=== PATIENT | female | born 1940 | race Hispanic/Latino ===

== ENCOUNTER 2017-08-31 05:18 | Observation (INO) | payer OTHER ==
[2017-08-26 11:56] LABS: BASOPHILS # (AUTO) 0.1 (0.0-0.1); BASOPHILS % 0.7 % (0.0-1.0); EOSINOPHILS # (AUTO) 0.1 (0.0-0.4); EOSINOPHILS % 1.6 % (0.0-6.0); HEMATOCRIT 42.1 % (34.2-44.1); HEMOGLOBIN 13.3 g/dL (12.0-16.0); LYMPHOCYTES # (AUTO) 1.6 (1.0-3.2); LYMPHOCYTES % 19.4 % (18.0-39.1); MEAN CORPUSCULAR HEMOGLOBIN 25.7 pg (28-32); MEAN CORPUSCULAR HGB CONC 31.6 g/dL (31-35); MEAN CORPUSCULAR VOLUME 81.3 fL (81-99); MONOCYTES # (AUTO) 0.9 (0.2-0.8); MONOCYTES % 10.8 % (4.4-11.3); NEUTROPHILS # (AUTO) 5.6 (2.1-6.9); NEUTROPHILS % 67.1 % (38.7-80.0); PLATELET COUNT 259 x10e3/uL (140-360); RED BLOOD COUNT 5.18 x10e6/uL (3.6-5.1); RED CELL DISTRIBUTION WIDTH 14.6 % (11.7-14.4)
[2017-08-26 12:15] LABS: ANION GAP 12.7 mmol/L (8-16); BLOOD UREA NITROGEN 11 mg/dL (7-26); BUN/CREATININE RATIO 15 (6-25); CALCIUM 9.6 mg/dL (8.4-10.2); CARBON DIOXIDE 28 mmol/L (22-29); CHLORIDE 103 mmol/L (98-107); CREATININE, SERUM 0.75 mg/dL (0.57-1.11); EST GLOMERULAR FILTRATION RATE > 60 ML/MIN (60-); GLUCOSE 94 mg/dL (74-118); POTASSIUM 4.7 mmol/L (3.5-5.1); SODIUM 139 mmol/L (136-145)
--- NOTE | 2017-08-26 13:07 | Diagnostic Imaging Report ---
PROCEDURE: Frontal and lateral views of the chest. COMPARISON: None. INDICATIONS: PREOP - LYMPHNODE SX FINDINGS: Lines/tubes: Right upper chest Port-A-Cath with catheter distal tip projecting in the cavoatrial junction. Lungs: The lungs are well inflated. Square-shaped nodular density projecting in the left lower lung, seen on the frontal view only likely represents summation of vessels and bony shadows and/or costochondral calcification. There is no evidence of pneumonia or pulmonary edema. Pleura: There is no pleural effusion or pneumothorax. Heart and mediastinum: Cardiac silhouette is unremarkable. Pulmonary vasculature is normal. Bones: No acute bony abnormality. IMPRESSION: 1. No acute cardiopulmonary abnormalities. Luis Rios M.D. Dictated by: Luis Rios M.D. on 08/26/2017 at 13:07 Electronically approved by: Luis Rios M.D. on 08/26/2017 at 13:07
[~2017-08-31] VITALS: Ht 170.2 cm; Wt 103.9 kg
[~2017-08-31 05:18] MED LIST: FAMOTIDINE20 MG PO; LORAZEPAM0.5 MG PO; LOSARTAN POTASS25 MG; METOPROLOL TART25 MG PO; VITAMIN C1000 MG; VITAMIN D31000 UNI1
--- OUTSIDE RECORDS SUMMARY | 2017-08-31 05:21 | XMS REPORT ---
Author Author [facility] Address Unknown Phone Unavailable Care Team Providers Care Enterprise Sales Executive Name Role Phone LEX LOMBARDO Unavailable Unavailable Problems This patient has no known problems. Allergies, Adverse Reactions, Alerts This patient has no known allergies or adverse reactions. Medications This patient has no known medications. Results Test Description Test Time Test Comments Text Results Atomic Results Result Comments CHEST 2 VIEWS [place] [address] Patient Name: ISAI QUIROS MR #: [id number] : 1940 Age/Sex: 76/F Req # : [id number] Adm Physician: Ordered by: NUVIA TALBERT MD Report #: [id number] Location: OR Room/Bed: Procedure: [id number] DX/CHEST 2 VIEWS Exam Date: 08/26/17 Exam Time: 1200 REPORT STATUS: Signed PROCEDURE: Frontal and lateral views of the chest. COMPARISON: None. INDICATIONS: PREOP - LYMPHNODE SX FINDINGS: Lines/tubes: Right upper chest Port-A-Cath with catheter distal tip projecting in the cavoatrial junction. Lungs: The lungs are well inflated. Square-shaped nodular density projecting in the left lower lung, seen on the frontal view only likely represents summation of vessels and bony shadows and/or costochondral calcification. There is no evidence of pneumonia or pulmonary edema. Pleura: There is no pleural effusion or pneumothorax. Heart and mediastinum: Cardiac silhouette is unremarkable. Pulmonary vasculature is normal. Bones: No acute bony abnormality. IMPRESSION: 1. No acute cardiopulmonary abnormalities. Reji Rios M.D. Dictated by: Reji Rios M.D. on 08/26/2017 at 13:07 Electronically approved by: Reji Rios M.D. on 08/26/2017 at 13:07 Dictated By: REJI RIOS MD [id number] Transcribed By: DON on 08/26/17 1307 COPY TO: NUVAI TALBERT MD
--- OUTSIDE RECORDS SUMMARY | 2017-08-31 05:21 | XMS REPORT | Clinical Summary ---
Author Author [facility] Address Unknown Phone Unavailable Care Team Providers Care Evaporator Operator Name Role Phone Provider, Unknown PCP Unavailable Allergies Active Allergy Reactions Severity Noted Date Comments Prochlorperazine 06/04/2016 Penicillins 06/04/2016 Current Medications Prescription Sig. Disp. Refills Start End Date Status Date amLODIPine (NORVASC) 2.5 Take 2.5 mg by mouth once 0 05/18/20 Active mg tablet daily. 16 LORAZepam (ATIVAN) 0.5 MG Take 0.5 mg by mouth 2 0 05/26/20 Active tablet (two) times a day as 16 needed. losartan (COZAAR) 25 MG TAKE 1 TABLET BY ORAL 3 04/09/20 Active tablet ROUTE EVERY DAY 16 CHOLECALCIFEROL, VITAMIN Take by mouth. Active D3, (VITAMIN D3 ORAL) metoprolol tartrate 1 TABLET WITH FOOD TWICE 3 08/03/19 Active (LOPRESSOR) 25 mg tablet A DAY ORALLY 90 DAYS 18 Active Problems Problem Noted Date Well woman exam with routine gynecological exam 06/17/2016 Encounters Date Type Specialty Care Team Description 08/24/2017 Office Visit Gynecologic Oncology Emeli De La Cruz MD Well woman exam with routine gynecological exam (Primary Dx) 10/03/2016 [facility] General Internal Medicine Physician, Emergency, MD - Encounter Iban Yeboah 10/05/2016 MD Portillo 10/03/2016 Orders Only Emergency Medicine Feliciano Gaytan DO after 08/30/2016 Family History Medical History Relation Name Comments Breast cancer Sister Relation Name Status Comments Sister Social History Tobacco Use Types Packs/Day Years Used Date Never Smoker Smokeless Tobacco: Never Used Alcohol Use Drinks/Week oz/Week Comments No Sex Assigned at Date Recorded Not on file Last Filed Vital Signs Vital Sign Reading Time Taken Blood Pressure 134/59 08/24/2017 4:06 PM SENIOR ARCHITECT/DESIGN MANAGER Pulse 70 08/24/2017 4:06 PM SENIOR ARCHITECT/DESIGN MANAGER Temperature - - Respiratory Rate - - Oxygen Saturation - - Inhaled Oxygen - - Concentration Weight 57.2 kg (126 lb) 08/24/2017 4:06 PM SENIOR ARCHITECT/DESIGN MANAGER Height 172.7 cm (5' 8") 08/24/2017 4:06 PM SENIOR ARCHITECT/DESIGN MANAGER Body Mass Index 19.16 08/24/2017 4:06 PM SENIOR ARCHITECT/DESIGN MANAGER Plan of Treatment Date Type Specialty Care Team Description 08/25/2018 Office Visit Gynecologic Oncology Emeli De La Cruz MD [address] [place] [address] Health Maintenance Due Date Last Done Comments ZOSTER VACCINE 2000 PNEUMOCOCCAL 2005 POLYSACCHARIDE VACCINE AGE 65 AND OVER PNEUMOCOCCAL-13 2005 INFLUENZA VACCINE 02/02/2017 Results * Urine culture (08/30/2017) Specimen Performing Laboratory Urine * POC glucose (10/03/2016 3:49 AM) Only the most recent of 2 results within the time period is included. Component Value Ref Range POC glucose 86 65 - 100 mg/dL Comment: Meter ID: [id number] Import/Export Clerk: Galina Moon Specimen Performing Laboratory [facility] DEPARTMENT OF PATHOLOGY AND GENOMIC MEDICINE [address] [place] [id number] * XR Chest 1 Vw (10/03/2016 1:45 AM) Specimen Performing Laboratory [facility] [place] [id number] Narrative EXAMINATION:CHEST 1 VIEW PA AP CLINICAL HISTORY:Cough COMPARISON:04/04/2015 IMPRESSION: Right chest port is unchanged with tip projecting over cavoatrial junction. Chronic appearing interstitial lung markings. No consolidations, effusions, or pneumothorax. No acute osseous abnormalities. [facility]-[id number] Procedure Note Interface, Radiology Conversion - 10/03/2016 2:05 AM CDT EXAMINATION: CHEST 1 VIEW PA AP CLINICAL HISTORY: Cough COMPARISON: 04/04/2015 IMPRESSION: Right chest port is unchanged with tip projecting over cavoatrial junction. Chronic appearing interstitial lung markings. No consolidations, effusions, or pneumothorax. No acute osseous abnormalities. [facility]-[id number] * CT Abdomen Pelvis Wo Contrast (10/03/2016 1:30 AM) Specimen Performing Laboratory [facility] [address] [place] [address] ABDOMEN WO PELVIS WO CLINICAL INDICATION:Abdominal pain TECHNIQUE: Multidetector CT of the abdomen and pelvis was performed without intravenous administration of iodinated contrast with multiplanar reformats. CT scans are performed using radiation dose reduction techniques (iterative reconstruction and/or automated exposure control). Technical factors are evaluated and adjusted to ensure appropriate moderation of exposure. Automated dose management technology is applied to adjust radiation exposure while achieving a diagnostic quality image. COMPARISON:None. FINDINGS: Lung bases: Mild bibasilar scarring. Liver:Vague contour irregularity. Gallbladder and biliary:Normal. Pancreas:Mildly atrophic with fatty replacement. Spleen: 1.2 cm hypodensity at the anterior margin of the spleen, probable cyst. Gastrointestinal:Diverticulosis of the descending and sigmoid colon. There is circumferential mural wall thickening of a segment of sigmoid colon. There is subtle fat stranding around the sigmoid colon extending towards the posterior left pelvic sidewall. No extraluminal gas or fluid collection. Large and small bowel are normal in caliber. Appendix is visualized and appears normal. Adrenals:Normal. Kidneys and ureters:No mass or hydronephrosis. Urinary bladder:Normal. Lymph nodes:No enlarged lymph nodes in the abdomen or pelvis. Peritoneum:No ascites or free air. Vascular:Moderate atherosclerotic changes of the abdominal aorta and major branch vessels. Evaluation of vessel lumens is limited due to lack of IV contrast. Reproductive organs:Uterus is absent. Unremarkable adnexae. Abdominal wall:Unremarkable. Bones:Diffuse osteopenia. Mild degenerative changes. IMPRESSION: Findings suggestive of mild sigmoid diverticulitis and/or muscular hypertrophy. No associated gas or fluid collection. Endoscopy may be considered following resolution of acute inflammatory process. [facility]-[id number] Procedure Note [facility], Radiology Conversion - 10/03/2016 1:[address] ABDOMEN WO PELVIS WO CLINICAL INDICATION: Abdominal pain TECHNIQUE: Multidetector CT of the abdomen and pelvis was performed without intravenous administration of iodinated contrast with multiplanar reformats. CT scans are performed using radiation dose reduction techniques (iterative reconstruction and/or automated exposure control). Technical factors are evaluated and adjusted to ensure appropriate moderation of exposure. Automated dose management technology is applied to adjust radiation exposure while achieving a diagnostic quality image. COMPARISON: None. FINDINGS: Lung bases: Mild bibasilar scarring. Liver: Vague contour irregularity. Gallbladder and biliary: Normal. Pancreas: Mildly atrophic with fatty replacement. Spleen: 1.2 cm hypodensity at the anterior margin of the spleen, probable cyst. Gastrointestinal: Diverticulosis of the descending and sigmoid colon. There is circumferential mural wall thickening of a segment of sigmoid colon. There is subtle fat stranding around the sigmoid colon extending towards the posterior left pelvic sidewall. No extraluminal gas or fluid collection. Large and small bowel are normal in caliber. Appendix is visualized and appears normal. Adrenals: Normal. Kidneys and ureters: No mass or hydronephrosis. Urinary bladder: Normal. Lymph nodes: No enlarged lymph nodes in the abdomen or pelvis. Peritoneum: No ascites or free air. Vascular: Moderate atherosclerotic changes of the abdominal aorta and major branch vessels. Evaluation of vessel lumens is limited due to lack of IV contrast. Reproductive organs: Uterus is absent. Unremarkable adnexae. Abdominal wall: Unremarkable. Bones: Diffuse osteopenia. Mild degenerative changes. IMPRESSION: Findings suggestive of mild sigmoid diverticulitis and/or muscular hypertrophy. No associated gas or fluid collection. Endoscopy may be considered following resolution of acute inflammatory process. [facility]-[id number] * Smear review (10/03/2016 1:12 AM) Component Value Ref Range Platelet slide review Mandeep adequate Specimen Performing Laboratory [facility] DEPARTMENT OF PATHOLOGY AND GENOMIC MEDICINE [address] [place] [address] * Estimated GFR (10/03/2016 1:12 AM) Component Value Ref Range GFR Non Af Amer >90 mL/min/1.73 m2 GFR Af Amer >90 mL/min/1.73 m2 Comment: Chronic kidney disease: <60 mL/min/1.73m2 Kidney failure: <15 mL/min/1.73m2 The estimated GFR is calculated from the IDMS-traceable Modification of Diet in Renal Disease Equation. The accuracy of the calculation is poor when the creatinine is normal. Calculated values >90 mL/min/1.73m2 are not reported. This equation has not been validated in children (<18 years), women, the elderly (>70 years), or ethnic groups other than Caucasians and Americans. Specimen Performing Laboratory [facility] DEPARTMENT OF PATHOLOGY AND GENOMIC MEDICINE [address] [place] [address] * CK-MB (10/03/2016 1:12 AM) Component Value Ref Range CK-MB 1.7 0.5 - 3.2 ng/mL Specimen Performing Laboratory [facility] DEPARTMENT OF PATHOLOGY AND GENOMIC MEDICINE [address] [place] [address] * Troponin (10/03/2016 1:12 AM) Component Value Ref Range Troponin <0.01 0.00 - 0.60 ng/mL Comment: 0.11 - 1.49 ng/ml May indicate increased risk of acute coronary syndrome. >=1.5 ng/ml Consistent with acute myocardial infarction. The diagnostic value of a single normal or non-diagnostic result is questionable. Serial samples at 2-6 hour intervals are required to rule out acute myocardial injury. Specimen Performing Laboratory [facility] DEPARTMENT OF PATHOLOGY AND GENOMIC MEDICINE [address] [place] [address] * CBC with platelet and differential (10/03/2016 1:12 AM) Component Value Ref Range WBC 7.9 4.2 - 11.0 k/uL RBC 4.64 4.04 - 5.86 m/uL HGB 12.2 11.5 - 15.3 g/dL HCT 36.8 34.0 - 45.0 % MCV 79.3 (L) 80.0 - 98.0 fL MCH 26.3 (L) 27.0 - 34.0 pg MCHC 33.2 31.5 - 36.5 g/dL RDW - SD 41.7 37.0 - 51.0 fL MPV 10.6 (H) 7.4 - 10.4 fL Platelet count 202 150 - 400 k/uL Nucleated RBC 0.00 /100 WBC Neutrophils 94.5 (H) 36.0 - 66.0 % Lymphocytes 1.6 (L) 24.0 - 44.0 % Monocytes 3.3 0.0 - 6.0 % Eosinophils 0.0 0.0 - 6.0 % Basophils 0.3 0.0 - 1.2 % Immature granulocytes 0.3 0.0 - 1.0 % Specimen Performing Laboratory [facility] DEPARTMENT OF PATHOLOGY AND GENOMIC MEDICINE [address] [place] [address] * Creatine kinase, total (CPK) (10/03/2016 1:12 AM) Component Value Ref Range Creatine kinase 73 61 - 224 U/L Specimen Performing Laboratory [facility] DEPARTMENT OF PATHOLOGY AND GENOMIC MEDICINE [address] [place] [address] * Basic metabolic panel (10/03/2016 1:12 AM) Component Value Ref Range Sodium 139 135 - 150 mEq/L Potassium 3.5 3.5 - 5.0 mEq/L Chloride 102 100 - 109 mEq/L CO2 27 24 - 32 mmol/L Anion gap 10 7 - 15 mEq/L Comment: Starting from October , anion gap calculation no longer incorporates potassium. Please note the change. BUN 14 7 - 18 mg/dL Creatinine 0.6 (L) 0.8 - 1.5 mg/dL Glucose 91 65 - 100 mg/dL Calcium 8.6 8.6 - 10.7 mg/dL Specimen Performing Laboratory [facility] DEPARTMENT OF PATHOLOGY AND GENOMIC MEDICINE [address] [place] [address] * Urine culture screen (10/03/2016 12:40 AM) Component Value Ref Range Urine culture screen Bacteriuria screen negative. isolate Specimen Performing Laboratory Urine [facility] DEPARTMENT OF PATHOLOGY AND GENOMIC MEDICINE [address] [place] [address] Narrative Specimen Site is : Clean catch Specimen Source is : Urine * Urine culture screen (10/03/2016 12:40 AM) Component Value Ref Range Color, UA Yellow Appearance, UA Clear Specific gravity, UA 1.015 1.001 - 1.035 pH, UA 8.0 5.0 - 8.5 Protein, UA Negative Negative Glucose, UA Negative Negative Ketones, UA Negative Negative Bilirubin, UA Negative Negative Blood, UA Negative Negative Nitrite, UA Negative Negative Urobilinogen, UA Negative <2.0 Leukocyte esterase, UA Negative Negative Epithelial cells, UA Few /HPF WBC, UA 1 0 - 5 /HPF RBC, UA 1 0 - 5 /HPF Bacteria, UA None seen None seen Yeast, UA None seen Yeast with pseudohyphae, None seen UA Specimen Performing Laboratory [facility] DEPARTMENT OF PATHOLOGY AND GENOMIC MEDICINE [address] [place] [address] * ECG 12 lead (10/03/2016 12:37 AM) Component Value Ref Range Ventricular rate 100 Atrial rate 100 TX interval 168 QRSD interval 78 QT interval 340 QTC interval 438 P axis 1 70 QRS axis 1 -65 T wave axis 87 EKG impression Normal sinus rhythm-Possible Left atrial enlargement-Left axis deviation-Septal infarct , age undetermined-Abnormal ECG-In automated comparison with ECG of 04-APR-2015 13:31,-Septal infarct is now present- Specimen Performing Laboratory [facility] [address] [place] [address] after 08/30/2016 Insurance Payer Benefit Subscriber ID Type Phone Address Plan / Group [employer] TEX[employer] xxxxxxxxx O [facility]
[2017-08-31] MEDS ORDERED: BUPIVACAINE 0.25% 30ML SDV INJ ONE (06:35)
[2017-08-31] MEDS ORDERED: LEVOFLOXACIN 500MG/D5W 100ML 100 ML IV ONE (07:01)
[2017-08-31] MEDS ORDERED: MORPHINE SULFATE 4 MG/ML SYR IV PRN (08:30)
[2017-08-31] MEDS ORDERED: MORPHINE SULFATE 2 MG/ML SYR IV PRN (08:45)
[2017-08-31] MEDS ORDERED: KETOROLAC TROMETHAMINE 30 MG/ML VIAL ONE (08:58)
--- NOTE | 2017-08-31 09:04 | Operative Report ---
DATE OF PROCEDURE: August 31, 2017 PREOPERATIVE DIAGNOSES 1, Metastatic carcinoma of the breast. 2. Right axillary mass. POSTOPERATIVE DIAGNOSES 1. Metastatic carcinoma of the breast. 2. Right axillary mass. PROCEDURE: Right axillary dissection. ALARM FIELD TECHNICIAN: None. ANESTHESIA: General. INDICATIONS AND FINDINGS: The patient is a 76-year-old female with previous surgery for carcinoma of breast, who developed a mass in the right axilla. Biopsy revealed carcinoma of the breast. At surgery, there was a large mass in the axilla, which is about 6 cm in diameter. It was adherent to the right axillary vein and in one area to the chest wall. TECHNIQUE: After adequate general anesthesia with the patient in the supine position, the right breast, chest, axilla, and right arm was prepped and draped in a sterile fashion with Majestic solution. A transverse incision was made in the right axilla and carried down through subcutaneous tissue. A clavipectoral fascia was incised to enter the axilla. There was a large firm mass within the axilla. Dissection was started superiorly. The mass extended well superiorly into the axilla tracking along the axillary vein and posterior to the pectoralis muscle. Inferiorly, the axillary tissue was dissected off the chest wall. The long thoracic nerve was identified and preserved. As the dissection was carried superiorly, the axillary tissue around the mass was dissected away from the chest wall. Vessels ligated with Hemoclips. At the superior aspect of the axilla, the mass was densely adhered to the chest wall. It was dissected away from the chest wall. There was a large artery going into the mass, which was clamped and divided. The mass was dissected away from the axillary vein. Vessels going from the axillary vein into the mass were divided between Hemoclips. The long thoracic nerve was identified and preserved. The dissection was carried along the axillary vein until the mass was completely free from the axillary vein. The vessels were divided between Hemoclips. The thoracodorsal neurovascular bundle was identified. The venous aspect was adherent to the mass, and this was divided between Hemoclips. The nerve was preserved. The branch of the artery was preserved. The remaining axillary tissue was divided using electrocautery. The axillary mass with the axillary tissue was removed. The one artery that was going into the mass was suture ligated with 2-0 Vicryl. An additional larger vein was suture ligated with 2-0 Vicryl. Hemostasis was seen to be adequate. The wound was irrigated with sterile water and inspected for hemostasis, which was seen to be adequate. The axillary vein, long thoracic nerve and thoracodorsal nerve were noted to be intact. A 10 mm flat Christos-Crockett drain was placed into the wound through a separate stab wound incision. The wound was inspected for hemostasis, which was seen to be adequate. The wound was then closed with 3-0 Vicryl for the subcutaneous tissue and heidi for the skin. Sterile dressing was applied. The patient tolerated the procedure well. Estimated blood loss was 400 mL. There were no complications. All counts were correct. Patient was taken to the recovery room in satisfactory condition. Job#: [id number] RUBEN cc: DR. MADRIGAL
[2017-08-31] MEDS ORDERED: FENTANYL CITRATE/PF 100MCG/2 ML INJ ONE ×2 (09:07→15:18)
--- OUTSIDE RECORDS SUMMARY | 2017-08-31 09:32 | XMS REPORT | Clinical Summary ---
Author Author [facility] Organization [facility] Address Unknown Phone Unavailable Care Team Providers Care Erecting Engineer Name Role Phone Provider, Unknown PCP Unavailable [...] with routine gynecological exam (Primary Dx) 10/03/2016 [facility] General Internal Medicine Physician, Emergency, MD - [...] Taken Blood Pressure 134/59 08/24/2017 4:06 PM TIME BROKER Pulse 70 08/24/2017 4:06 PM TIME BROKER Temperature - - Respiratory Rate - - Oxygen Saturation - - Inhaled Oxygen - - Concentration Weight 57.2 kg (126 lb) 08/24/2017 4:06 PM TIME BROKER Height 172.7 cm (5' 8") 08/24/2017 4:06 PM TIME BROKER Body Mass Index 19.16 08/24/2017 4:06 PM TIME BROKER Plan of Treatment Date Type Specialty Care Team Description 08/25/2018 Office Visit Gynecologic Oncology Emeli De La Cruz MD [address] [place] [id number] Health Maintenance Due Date Last Done [...] 65 - 100 mg/dL Comment: Meter ID: [id number] Hydro Excavation Operator: Galina Moon Specimen Performing Laboratory [facility] [place] [address] [place] [id number] * XR Chest 1 Vw (10/03/2016 1:45 AM) Specimen Performing Laboratory [facility] [place] [id number] Narrative EXAMINATION:CHEST 1 VIEW PA AP CLINICAL HISTORY:Cough COMPARISON:04/04/2015 IMPRESSION: Right chest port is unchanged with tip projecting over cavoatrial junction. Chronic appearing interstitial lung markings. No consolidations, effusions, or pneumothorax. No acute osseous abnormalities. [facility]-[id number] Procedure Note Interface, Radiology Conversion - 10/03/2016 2:05 AM CDT EXAMINATION: CHEST 1 VIEW PA AP CLINICAL HISTORY: Cough COMPARISON: 04/04/2015 IMPRESSION: Right chest port is unchanged with tip projecting over cavoatrial junction. Chronic appearing interstitial lung markings. No consolidations, effusions, or pneumothorax. No acute osseous abnormalities. [facility]-[id number] * CT Abdomen Pelvis Wo Contrast (10/03/2016 1:30 AM) Specimen Performing Laboratory [facility] [address] [place] [address] ABDOMEN WO PELVIS WO CLINICAL [...] considered following resolution of acute inflammatory process. [facility]-[id number] Procedure Note [facility], Radiology Conversion - 10/03/2016 1:51 AM CDT [...] considered following resolution of acute inflammatory process. [facility]-[id number] * Smear review (10/03/2016 1:12 AM) Component Value Ref Range Platelet slide review Mandeep adequate Specimen Performing Laboratory [facility] [place] [facility] [place] [address] [place] [address] * Estimated GFR (10/03/2016 1:12 AM) Component [...] than Caucasians and Americans. Specimen Performing Laboratory [facility] [place] [facility] [place]IC[facility] [address] [place] [address] * CK-MB (10/03/2016 1:12 AM) Component Value Ref Range CK-MB 1.7 0.5 - 3.2 ng/mL Specimen Performing Laboratory [facility] [place] [facility] [place] [address] [place] [address] * Troponin (10/03/2016 1:12 AM) Component Value [...] out acute myocardial injury. Specimen Performing Laboratory [facility] [place] [facility] [place]IC[facility] [address] [place] [address] * CBC with platelet and differential (10/03/2016 [...] 0.0 - 1.0 % Specimen Performing Laboratory [facility] [place] [facility] [place]IC[facility] [address] [place] [address] * Creatine kinase, total (CPK) (10/03/2016 1:12 AM) Component Value Ref Range Creatine kinase 73 61 - 224 U/L Specimen Performing Laboratory [facility] [place] [facility] [place]IC[facility] [address] [place] [address] * Basic metabolic panel (10/03/2016 1:12 AM) [...] 8.6 - 10.7 mg/dL Specimen Performing Laboratory [facility] [place] [facility] [place]IC[facility] [address] [place] [address] * Urine culture screen (10/03/2016 12:40 AM) Component Value Ref Range Urine culture screen Bacteriuria screen negative. isolate Specimen Performing Laboratory Urine [facility] DEPARTMENT OF PATHOLOGY AND GENOMIC MEDICINE [address] [place] [address] Narrative Specimen Site is : Clean catch [...] pseudohyphae, None seen UA Specimen Performing Laboratory [facility] [place] [facility] [place]OM[facility]ICINE [address] [place] [address] * ECG 12 lead (10/03/2016 12:37 AM) Component Value Ref Range Ventricular rate 100 Atrial rate 100 ND interval 168 QRSD interval 78 QT interval 340 QTC interval 438 P axis 1 70 QRS axis 1 -65 T wave axis 87 EKG impression Normal sinus rhythm-Possible Left atrial enlargement-Left axis deviation-Septal infarct , age undetermined-Abnormal ECG-In automated comparison with ECG of 04-APR-2015 13:31,-Septal infarct is now present- Specimen Performing Laboratory [facility] [place] [address] [place] [address] after 08/30/2016 Insurance Payer Benefit Subscriber ID Type Phone Address Plan / Group [employer] TEX[employer] xxxxxxxxx [facility]
[2017-08-31 10:15] VITALS: BP 152/68
[2017-08-31] MEDS: SODIUM CHLORIDE 0.9% 1000ML 1,000 ML IV SCH ×2 (10:30→21:35)
[2017-08-31] MEDS: MORPHINE SULFATE 2 MG/ML SYR IV PRN ×2 (10:50→17:00)
[2017-08-31] MEDS: ONDANSETRON HCL INJ 2 MG/ML VIAL IV PRN ×2 (10:50→17:00)
[2017-08-31 12:07] VITALS: BP 163/70
[2017-08-31] MEDS: METOPROLOL TARTRATE 25 MG TAB PO SCH (15:00)
[2017-08-31] MEDS: FAMOTIDINE 20 MG TAB PO SCH (15:00)
[2017-08-31] MEDS ORDERED: MIDAZOLAM HCL 2 MG/2 ML VIAL ONE (15:18)
[2017-08-31] MEDS ORDERED: LIDOCAINE HCL 2% LOCAL INJ 5 ML SDV VIAL INJ ONE (16:03)
[2017-08-31] MEDS ORDERED: DEXAMETHASONE SOD PHOS INJ 4 MG/ML VIAL ONE (16:03)
[2017-08-31] MEDS ORDERED: SEVOFLURANE INHAL SOLN 250 ML PEN BTL ONE (16:03)
[2017-08-31] MEDS ORDERED: PROPOFOL IV EMULSION 10 MG/ML 20 ML VIAL ONE (16:03)
[2017-08-31] MEDS ORDERED: ONDANSETRON HCL INJ 2 MG/ML VIAL ONE (16:03)
[2017-08-31 16:47] VITALS: BP 150/70
[2017-08-31 19:10] VITALS: BP 134/66
[2017-08-31 20:00] VITALS: BP 134/66
[2017-09-01] VITALS (7 sets, daily range): BP systolic 130–159; BP diastolic 60–71
[2017-09-01] MEDS: SODIUM CHLORIDE 0.9% 1000ML 1,000 ML IV SCH ×2 (06:25→18:28)
[2017-09-01 06:33] LABS: BASOPHILS % 0.3 % (0.0-1.0); EOSINOPHILS % 0.4 % (0.0-6.0); HEMATOCRIT 32.3 % (34.2-44.1); HEMOGLOBIN 10.3 g/dL (12.0-16.0); LYMPHOCYTES # (AUTO) 1.2 (1.0-3.2); LYMPHOCYTES % 13.8 % (18.0-39.1); MEAN CORPUSCULAR HGB CONC 31.9 g/dL (31-35); MEAN CORPUSCULAR VOLUME 81.6 fL (81-99); MONOCYTES # (AUTO) 1.1 (0.2-0.8); MONOCYTES % 12.6 % (4.4-11.3); NEUTROPHILS # (AUTO) 6.5 (2.1-6.9); NEUTROPHILS % 72.6 % (38.7-80.0); PLATELET COUNT 217 x10e3/uL (140-360); RED BLOOD COUNT 3.96 x10e6/uL (3.6-5.1); RED CELL DISTRIBUTION WIDTH 14.7 % (11.7-14.4)
[2017-09-01] MEDS ORDERED: MAGNESIUM HYDROXIDE 30 ML UDC PO PRN (07:00)
[2017-09-01] MEDS: FAMOTIDINE 20 MG TAB PO SCH (08:10)
[2017-09-01] MEDS: HYDROCODONE/APAP 5MG-325MG TAB PO PRN ×2 (08:11→16:11)
[2017-09-01] MEDS: METOPROLOL TARTRATE 25 MG TAB PO SCH ×2 (08:12→20:58)
[2017-09-01] MEDS: ONDANSETRON HCL INJ 2 MG/ML VIAL IV PRN (14:39)
[2017-09-01] MEDS ORDERED: LOSARTAN POTASSIUM 25 MG TAB PO SCH (21:00)
[2017-09-02] MEDS: SODIUM CHLORIDE 0.9% 1000ML 1,000 ML IV SCH (00:26)
[2017-09-02] MEDS: ONDANSETRON HCL INJ 2 MG/ML VIAL IV PRN ×2 (03:57→09:21)
[2017-09-02 04:00] VITALS: BP 157/67
[2017-09-02] MEDS ORDERED: LOSARTAN POTASSIUM 25 MG TAB PO SCH (09:00)
[2017-09-02] MEDS: FAMOTIDINE 20 MG TAB PO SCH (09:03)
[2017-09-02] MEDS: METOPROLOL TARTRATE 25 MG TAB PO SCH (09:03)
[2017-09-02] MEDS: HYDROCODONE/APAP 5MG-325MG TAB PO PRN (09:21)
[2017-09-02 11:30] VITALS: BP 117/55
[2017-09-02 12:10] VITALS: BP_SYST 121; BP_SYST 148; BP_DIAS 62; BP_DIAS 64
== END 2017-09-02 14:59 | disposition home or self-care (01) ==
LOC: OR 05:18 → IMCU 09:29
PROVIDERS: ADMIT Surgery; ATTEND Surgery
DX: C77.3 Secondary and unspecified malignant neoplasm of axilla and upper limb lymph nodes (principal); C50.911 Malignant neoplasm of unspecified site of right female breast; I10 Essential (primary) hypertension; Z85.79 Personal history of other malignant neoplasms of lymphoid, hematopoietic and related tissues; J44.9 Chronic obstructive pulmonary disease, unspecified; Z88.0 Allergy status to penicillin; Z88.8 Allergy status to other drugs, medicaments and biological substances
CPT/HCPCS: 36415 ×2; 38525; 71046; 80048; 85025 ×2; 88305; 93005; G0378 ×3; J1100; J1885; J1956; J2001; J2250; J2270; J2405 ×3; J7030 ×3; 88307